=== PATIENT | female | born 1960 | race Caucasian/White ===

== ENCOUNTER 2017-09-23 12:23 | Emergency (ER) | payer OTHER ==
[~2017-09-23] VITALS: Ht 154.9 cm; Wt 56.7 kg
[2017-09-23] MEDS ORDERED: KETO10TA2 PO (16:30)
== END 2017-09-23 16:53 | disposition home or self-care (01) ==
LOC: ER 12:23
DX: S83.8X2A Sprain of other specified parts of left knee, initial encounter (principal); X50.0XXA Overexertion from strenuous movement or load, initial encounter; Y93.89 Activity, other specified; Y92.89 Other specified places as the place of occurrence of the external cause; Y99.8 Other external cause status

== ENCOUNTER 2021-04-26 06:20 | Day surgery (SDC) | payer OTHER ==
[~2021-04-26] VITALS: Ht 154.9 cm; Wt 61.7 kg
[~2021-04-26 06:20] MED LIST: KETO10TA2 PO
== END 2021-04-26 19:45 | disposition home or self-care (01) ==
LOC: ER 06:20 → CIR.AMB 10:40
PROVIDERS: ATTEND Orthopaedic Surgery Hand Surgery
DX: S52.591A Other fractures of lower end of right radius, initial encounter for closed fracture (principal); Z20.822 Contact with and (suspected) exposure to COVID-19
CPT/HCPCS: 25609; C1776; 25118; 25280